=== PATIENT | female | born 1955 | race Caucasian/White ===

== ENCOUNTER 2019-06-15 10:44 | Emergency (ER) | payer OTHER, SELFPAY ==
[2019-06-15] VITALS (16 sets, daily range): BP systolic 104–141; BP diastolic 55–99; PULSE 63–78; RESP 16–20; TEMP 36.9; O2SAT 96–100
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
[2019-06-15] MEDS: Acetaminophen 500 MG TAB 1000 MG PO (12:52)
== END 2019-06-15 13:35 | disposition home or self-care (01) ==
PROVIDERS: Emergency Provider Physician Assistant; PCP Nurse Practitioner Family
DX: S16.1XXA Strain of muscle, fascia and tendon at neck level, initial encounter (principal); R51 Headache; V47.0XXA Car driver injured in collision with fixed or stationary object in nontraffic accident, initial encounter
CPT/HCPCS: 99284; 72125; L0120; L0172

== ENCOUNTER 2021-04-21 04:54 | Outpatient (CLI) | payer MEDICARE, SELFPAY ==
--- NOTE | 2021-04-21 12:56 | W.PFT ---
Date of service: 04/21/21 Time of Service: 10:06 Pulmonary Function Test Result Requesting Provider Duchene Indications: Cough Interpretation Spirometry: There is no airflow limitation Lung Volumes: Lung Volumes are normal Diffusion Capacity: Diffusion is normal Airway Pressure: Airways resistance is normal Impression Normal pulmonary function test Clinical Correlation therefore is recommended.
[2021-04-21] MEDS: Methacholine 100 MG VIAL IH (13:20)
[2021-04-21] MEDS: Inhaler, Assist Device 1 EACH MC (13:21)
[2021-04-21] MEDS: Albuterol HFA 18 GM 200 PUFF INH IH (13:21)
--- NOTE | 2021-04-21 13:50 | W.PFT ---
Date of service: 04/21/21 Time of Service: 10:06 Pulmonary Function Test Result Requesting Provider Jerad Indications: Cough Interpretation Spirometry: No airflow limitation at baseline. There was a 34% decreased in FEV1 with administration of 1mg/mL of methacholine. Impression Strongly positive methacholine challenge test Clinical Correlation therefore is recommended.
== END 2021-04-21 04:55 | disposition home or self-care (01) ==
PROVIDERS: PCP Nurse Practitioner Family; Visit Provider Student in an Organized Health Care Education/Training Program
DX: R05 Cough (principal); R94.2 Abnormal results of pulmonary function studies
CPT/HCPCS: 94060; 94726; 94729; 95070; 94010; J7674

== ENCOUNTER → 2023-08-29 11:02 | Outpatient (BNVA) | payer OTHER, SELFPAY | PROVIDERS: PCP Nurse Practitioner Family; Visit Provider Physician Assistant Surgical | DX: J45.909 Unspecified asthma, uncomplicated (principal) | CPT/HCPCS: 99214 ==

== ENCOUNTER → 2023-11-17 14:24 | Outpatient (BNVA) | payer OTHER, SELFPAY | PROVIDERS: PCP Nurse Practitioner Family; Referring Provider Nurse Practitioner Family; Visit Provider Podiatrist | DX: M79.671 Pain in right foot (principal); Z98.890 Other specified postprocedural states; L84 Corns and callosities; M67.01 Short Achilles tendon (acquired), right ankle; M67.02 Short Achilles tendon (acquired), left ankle; M79.672 Pain in left foot | CPT/HCPCS: 17110 ==

== ENCOUNTER → 2024-11-01 13:39 | Outpatient (BNVA) | payer MEDICARE, SELFPAY | PROVIDERS: PCP Nurse Practitioner Family; Referring Provider Nurse Practitioner Family; Visit Provider Physician Assistant Surgical | DX: J45.909 Unspecified asthma, uncomplicated (principal) | CPT/HCPCS: 99214 ==